=== PATIENT | male | born 1995 | race Caucasian/White ===

== ENCOUNTER 2017-09-30 15:02 | Emergency (ER) | payer BC ==
[~2017-09-30] VITALS: Ht 177.8 cm; Wt 102.3 kg
[~2017-09-30 15:02] MED LIST: NORCO 325 MG-51 TAB PO; RELAFEN750 MG PO
[2017-09-30 15:04] VITALS: BP 145/77; TEMP 97.3
[2017-09-30] MEDS ORDERED: FOLIC ACID 11 MG/TA1 (15:07)
[2017-09-30] MEDS ORDERED: METHOTREXA2.5 MG/TAB (15:07)
[2017-09-30 16:30] VITALS: PULSE 99
== END 2017-09-30 16:30 | disposition home or self-care (01) ==
LOC: COL.ER 15:02
DX: S93.402A Sprain of unspecified ligament of left ankle, initial encounter (principal); L40.50 Arthropathic psoriasis, unspecified; X50.3XXA Overexertion from repetitive movements, initial encounter; Y93.73 Activity, racquet and hand sports

== ENCOUNTER 2017-11-25 15:56 | Emergency (ER) | payer BC ==
[~2017-11-25] VITALS: Ht 177.8 cm; Wt 106.8 kg
[~2017-11-25 15:56] MED LIST changes: +FOLIC ACID 11 MG/TA1; +METHOTREXA2.5 MG/TAB
[2017-11-25 16:00] VITALS: BP 136/89; TEMP 99
[2017-11-25] MEDS ORDERED: VITAMIN D3400 I1 PO (16:03)
[2017-11-25] MEDS ORDERED: OMEGA-3 1000 MG1 CAP PO (16:03)
[2017-11-25] MEDS ORDERED: CRUTCHES MC (16:57)
[2017-11-25 17:31] VITALS: PULSE 88
== END 2017-11-25 17:32 | disposition home or self-care (01) ==
LOC: COL.ER 15:56
DX: S93.402A Sprain of unspecified ligament of left ankle, initial encounter (principal); X50.0XXA Overexertion from strenuous movement or load, initial encounter; Y93.67 Activity, basketball; Y92.39 Other specified sports and athletic area as the place of occurrence of the external cause